=== PATIENT | male | born 1935 | race Caucasian/White ===

== ENCOUNTER → 2018-01-20 | Outpatient (CLI) | payer MEDICARE, BC ==
[~2018-01-20] MED LIST: ALEVE 220MG220 MG PO; BONIVA PO; CALTRATE-600 W600 MG PO; CEFTIN 250250 MG/TAB PO; CITRUCEL PACKET1 PKT PO; CRANBERRY FRUI405 MG PO; DOXYCYCLINE 10100 MG PO; FLOMAX 0.40.4 MG/CAP PO; NORCO 325 MG-7.1 TAB PO; PRILOSEC10 MG PO; PRILOTC; PROSCAR PO; PROZAC 20MG20 MG PO; TYLENOL 325MG325 MG PO; XARELTO10 MG PO
== END ==
LOC: COL.RAD 09:03
DX: M25.552 Pain in left hip (principal)
CPT/HCPCS: J3301; Q9967

== ENCOUNTER → 2018-09-13 | Outpatient (CLI) | payer MEDICARE, BC | LOC: COL.RAD 09:13 | DX: N18.9 Chronic kidney disease, unspecified (principal); N40.1 Benign prostatic hyperplasia with lower urinary tract symptoms ==

== ENCOUNTER → 2019-12-23 | Outpatient (CLI) | payer MEDICARE, BC ==
[~2019-12-23] MED LIST changes: +ADVIL200 MG PO; +BENTYL 10MG10 MG/CAP PO; +CITRUCEL POWDE850 GM PO; +STOOL SOFTENER100 M2 PO; +SYSTANE 0.4%-0.1 SOL OP; +VITAMIN D250 MCG PO
== END ==
LOC: COL.RAD 10:02
DX: N18.3 Chronic kidney disease, stage 3 (moderate) (principal)

== ENCOUNTER 2020-03-10 10:04 | Emergency (ER) | payer MEDICARE, BC ==
[~2020-03-10] VITALS: Ht 193 cm; Wt 63.6 kg
[2020-03-10 10:11] VITALS: TEMP 98
[2020-03-10] MEDS ORDERED: LINZESS72 MCG PO (11:23)
[2020-03-10 11:44] LABS: ALBUMIN 4.2 gm/dL (3.5-5.0); BILIRUBIN,TOTAL 0.9 mg/dL (0.0-1.0); CALCIUM 9.9 mg/dL (8.4-10.2); CREATININE, serum 1.28 (0.66-1.25); POTASSIUM 3.8 mmol/L (3.4-5.0); TOTAL PROTEIN 7.5 gm/dL (6.4-8.2)
[2020-03-10 11:50] LABS: COLLECTION METHOD CLEAN CATCH
[2020-03-10 11:53] LABS: BASO % 0.2 % (0.0-2.0); EOS % 0.7 % (0-4.0); GRAN # 2.7 (1.4-6.5); GRAN % 62.9 % (42.2-75.2); HEMATOCRIT 50.4 % (42.0-52.0); HEMOGLOBIN 16.7 g/dl (13.5-18.0); LYMPH # 1.1 (1.2-3.4); LYMPH % 25.4 % (20.0-51.0); MEAN CELL VOLUME 92 fl (80.0-100.0); MEAN CORPUSCULAR HEMOGLOBIN 30 pg (27.0-31.0); MEAN CORPUSCULAR HGB CONC 33 g/dl (33.0-37.0); MEAN PLATELET VOLUME 10.5 fl (7.4-10.4); MONO # 0.5 (0.1-0.6); MONO % 10.6 % (1.7-9.3); PLATELET COUNT 144 K/mm3 (130-400); RED BLOOD COUNT 5.51 M/mm3 (4.20-5.60); REDCELL DISTRIBUTION WIDTH-CV 13.7 % (11.5-14.5)
[2020-03-10 11:56] LABS: MUCOUS Present /lpf; PH 5 (5-8); SQUAMOUS EPITHELIAL 0-2 /hpf; URINE APPEARANCE Clear; URINE BACTERIA Rare /hpf; URINE BILIRUBIN Negative (NEGATIVE); URINE BLOOD Negative (NEGATIVE); URINE COLOR Yellow; URINE GLUCOSE Negative (NEGATIVE); URINE KETONE Negative (NEGATIVE); URINE LEUKOCYTE ESTERASE Negative (NEGATIVE); URINE NITRATE Negative (NEGATIVE); URINE PROTEIN(semi-quant) Negative (NEGATIVE); URINE RBC 0-2 /hpf; URINE UROBILINOGEN Negative (NEGATIVE)
[2020-03-10 13:42] VITALS: BP 145/88; PULSE 90
== END 2020-03-10 13:45 | disposition home or self-care (01) ==
LOC: COL.ER 10:04
PROVIDERS: Nurse Practitioner Primary Care
DX: R19.7 Diarrhea, unspecified (principal)
CPT/HCPCS: J7030

== ENCOUNTER → 2022-05-12 | Outpatient (CLI) | payer MEDICARE, BC ==
[~2022-05-12] MED LIST changes: +LINZESS72 MCG PO
== END ==
LOC: COL.RAD 10:00
DX: M25.552 Pain in left hip (principal)
CPT/HCPCS: J3301; Q9967

== ENCOUNTER 2022-12-17 06:49 | Outpatient (CLI) | payer MEDICARE, BC ==
[~2022-12-17] VITALS: Ht 193 cm; Wt 88.8 kg
[~2022-12-17 06:49] MED LIST changes: +ANUSOL-HC SUPPO25 MG RC; +ASPIRIN 81M81 MG/TA2 PO; +CRESTOR20 MG PO; +GENTAMICIN EYE D5 ML OS; +PLAVIX 75MG TAB75 MG PO; +PROTONIX 40MG T40 MG PO; +TOPROL XL 25MG25 MG PO; +TYLENOL 500MG500 MG PO; +ULTRAM 50MG TAB50 MG PO
[2022-12-17 07:50] LABS: BASO % 0.2 % (0.0-2.0); EOS % 0.8 % (0.0-4.0); GRAN # 2.9 K/mm3 (1.4-6.5); GRAN % 59.7 % (42.2-75.2); HEMATOCRIT 42.5 % (42.0-52.0); HEMOGLOBIN 14.3 g/dl (13.5-18.0); LYMPH # 1.5 K/mm3 (1.2-3.4); MEAN CELL VOLUME 95 fl (80.0-100.0); MEAN CORPUSCULAR HEMOGLOBIN 32 pg (27-31); MEAN CORPUSCULAR HGB CONC 34 g/dl (33.0-37.0); MEAN PLATELET VOLUME 9.5 fl (7.4-10.4); MONO # 0.4 K/mm3 (0.1-0.6); MONO % 7.7 % (1.7-9.3); PLATELET COUNT 116 K/mm3 (130-400); RED BLOOD COUNT 4.47 M/mm3 (4.20-5.60)
[2022-12-17 08:02] LABS: CALCIUM 9.3 mg/dL (8.4-10.2); CREATININE, serum 1.19 mg/dL (0.72-1.25); POTASSIUM 4.1 mmol/L (3.5-4.5)
[2022-12-17] MEDS ORDERED: TYLENOL 500MG500 MG PO (08:13)
[2022-12-17] MEDS ORDERED: FLOMAX 0.40.4 MG/CAP PO (08:13)
[2022-12-17] MEDS ORDERED: PROTONIX 40MG T40 MG PO (08:14)
[2022-12-17] MEDS ORDERED: ASPIRIN 81M81 MG/TA2 PO (08:14)
[2022-12-17] MEDS ORDERED: CRESTOR20 MG PO (08:14)
[2022-12-17] MEDS ORDERED: PLAVIX 75MG TAB75 MG PO (08:15)
[2022-12-17] MEDS ORDERED: PREDNISONE10 MG PO (08:16)
[2022-12-17 08:19] LABS: PROTHROMBIN TIME 11.3 SECONDS (9.7-12.8)
[2022-12-17] MEDS ORDERED: MIRALAX PA17 GM/Dose PO (08:20)
[2022-12-17] MEDS ORDERED: ANUSOL-HC SUPPO25 MG RC (08:20)
[2022-12-17] MEDS ORDERED: GENTAMICIN EYE D5 ML OD (08:21)
[2022-12-17] MEDS ORDERED: COLACE 100100 MG/CAP PO (08:21)
[2022-12-17] MEDS ORDERED: TOPROL XL 25MG25 MG PO (08:22)
[2022-12-17 08:27] VITALS: BP 108/64; PULSE 82; TEMP 98.2
--- NOTE | 2022-12-17 09:18 | NUR ---
Report from Mihai Du.pt observed alert and awake, respirations even and unlabored.Family at bedside.
[2022-12-17 09:19] VITALS: BP 105/69; PULSE 82
[2022-12-17 09:30] VITALS: BP 109/68; PULSE 77
[2022-12-17 09:45] VITALS: BP 104/82; PULSE 86
[2022-12-17 10:00] VITALS: BP 111/76; PULSE 84
[2022-12-17 10:15] VITALS: BP 125/75; PULSE 93
--- NOTE | 2022-12-17 10:28 | NUR ---
Discharge instructions given to pt.Pt verbalizes understanding.Pt escorted out via wheelchair by this nurse.
== END 2022-12-17 12:31 ==
LOC: COL.RAD 06:49
PROVIDERS: Internal Medicine Cardiovascular Disease
DX: I35.0 Nonrheumatic aortic (valve) stenosis (principal)
CPT/HCPCS: J2704